=== PATIENT | female | born 1980 | race African-American/Black ===

== ENCOUNTER 2016-11-26 20:17 | Emergency (ER) | payer OTHER ==
[~2016-11-26] VITALS: Ht 175.3 cm; Wt 78.0 kg
[~2016-11-26 20:17] MED LIST: NORC7.5T PO; PRENCAP10 PO; VITA400C28 PO
[2016-11-26 20:29] VITALS: BP 122/76; PULSE 88; RESP 20; TEMP 98
[2016-11-26] MEDS ORDERED: TRIA.1%T TOPICAL (20:36)
--- NOTE | 2016-11-26 20:41 | PD ---
HPI Chief Complaint: Bite or Sting Time Seen by Provider: 20:36 Travel History International Travel<30 days: No Contact w/Intl Traveler<30days: No Traveled to known affect area: No History of Present Illness HPI 36-year-old black female presents emergency department for evaluation of a insect bite to her right inner thigh. She states that she was at [facility] yesterday when she was bitten by something. She does not recall seeing in the insect but felt the sting. She states the area became red, pruritic and swollen. She has been scratching the area. She has noted that the area has become quite large and warm. She denies any other systemic symptoms. No fever chills. No nausea vomiting PFSH Past Medical History Anemia: Yes Heart Rhythm Problems: Yes (SHE HAS AN IRREGULAR RYTHMN PER HISTORY, BUT DOES NOT KNOW WHAT.) Tetanus Vaccination: < 5 Years : 3 Para: 2 Past Surgical History Section: Yes (X2) Gynecologic Surgery: Yes ( X 2) Social History Alcohol Use: Yes (2 DRINKS PER MONTH) Tobacco Use: No Substance Use: No Allergies-Medications (Allergen,Severity, Reaction): Coded Allergies: No Known Allergies (Verified , 11/26/16) Reported Meds & Prescriptions Reported Meds & Active Scripts Active Reported Raymond 7.5/325 (Hydrocodone-Acetaminophen) 7.5 Mg/325 Mg Tab 1 Tab PO Q4H PRN Vitamin D 400 Unit Tab 400 Unit PO DAILY Multi +Dha (Ferrous Fumarate/Vit C/Folic Acid) + Cap 1 Cap PO DAILY Review of Systems Except as stated in HPI: all other systems reviewed are Neg Physical Exam Narrative GENERAL: Well-developed, well-nourished in no acute distress. Nontoxic appearing. HEAD: Normocephalic, atraumatic. EYES: Pupils equal round and reactive. Extraocular motions intact. No scleral icterus. No injection or drainage. ENT: TMs clear without erythema. The external auditory canals clear. Nose: clear . Posterior pharynx is pink and moist. No tonsillar edema or exudate. Uvula midline. Airway patent. NECK: Trachea midline.Supple, nontender, moves head freely. No central bony tenderness or spasm. CARDIOVASCULAR: Regular rate and rhythm without murmurs, gallops, or rubs. RESPIRATORY: Clear to auscultation. Breath sounds equal bilaterally. No wheezes , rales, or rhonchi. GASTROINTESTINAL: Abdomen soft, non-tender, nondistended. No hepato-splenomegaly , or palpable masses. No guarding. EXTREMITIES: No clubbing, cyanosis, or edema. No joint tenderness, effusion, or edema noted. BACK: Nontender without deformity or crepitance. No flank tenderness. Skin: The patient has a 10 x 10 area of erythema, thickening and warmth to the medial aspect of the distal right thigh. No tenderness. No fluctuance or pointing. Data Data Last Documented VS Vital Signs Date Time Temp Pulse Resp B/P Pulse Ox O2 Delivery O2 Flow Rate FiO2 11/26/16 20:29 98.0 88 20 122/76 Orders Diphenhydramine (Benadryl) (11/26/16 20:45) Dexamethasone (Decadron) (11/26/16 20:45) MDM Medical Decision Making Medical Screen Exam Complete: Yes Emergency Medical Condition: Yes Medical Record Reviewed: Yes Differential Diagnosis MDM: High Differential diagnoses: Insect bite with local reaction, folliculitis, cellulitis, lymphangitis, abrasion, contact dermatitis Narrative Course Patient given Decadron 12 mg by mouth and 50 mg of Benadryl by mouth. This is insect bite with local reaction Diagnosis Primary Impression: iNSECT BITE WITH LOCAL REACTION Patient Instructions: General Instructions Departure Forms: Tests/Procedures, Work Release Special Instructions: No work 1-2 days. Additional Instructions: Rest. Elevation. Ice packs for the next few days. 50 g of Benadryl every 4 hours. Triamcinolone cream 3 times daily. Follow-up with a medical doctor in one week. Return to the ER for any problems. Med/Other Pt SpecificInfo: Prescription(s) given Scripts Triamcinolone Topical 0.1% Cream1 Applic TOPICAL TID #30 GM Prov:Patsy Treviño MD 11/26/16 Disposition: 01 DISCHARGE HOME Condition: Stable Brent Gaona Nov 26, 2016 20:41
[2016-11-26] MEDS ORDERED: diphenhydrAMINE HCL 50 MG CAP PO ONE (20:45)
[2016-11-26] MEDS ORDERED: DEXAMETHASONE 6 MG TAB PO ONE (20:45)
== END 2016-11-26 21:30 | disposition home or self-care (01) ==
LOC: NEPK 20:17
DX: S70.361A Insect bite (nonvenomous), right thigh, initial encounter (principal); D64.9 Anemia, unspecified; Z79.899 Other long term (current) drug therapy; W57.XXXA Bitten or stung by nonvenomous insect and other nonvenomous arthropods, initial encounter
CPT/HCPCS: 99283; J8540; Q0163

== ENCOUNTER 2017-01-13 11:08 | Emergency (ER) | payer OTHER ==
[~2017-01-13] VITALS: Ht 175.3 cm; Wt 88.5 kg
[~2017-01-13 11:08] MED LIST changes: -NORC7.5T PO; -PRENCAP10 PO; +TRIA.1%T TOPICAL; -VITA400C28 PO
[2017-01-13 11:09] VITALS: BP 180/101; PULSE 72; RESP 16; TEMP 98.8; O2SAT 99
[2017-01-13 11:22] VITALS: BP 167/113
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
[2017-01-13] MEDS ORDERED: ROBA500T PO (11:48)
[2017-01-13] MEDS ORDERED: IBUP800T23 PO (11:48)
[2017-01-13 11:57] VITALS: BP 139/93
[2017-01-13] MEDS ORDERED: METHOCARBAMOL 500 MG TAB PO ONE (12:00)
[2017-01-13] MEDS ORDERED: IBUPROFEN 800 MG TAB PO ONE (12:00)
== END 2017-01-13 12:19 | disposition home or self-care (01) ==
LOC: NEPK 11:08
DX: S39.012A Strain of muscle, fascia and tendon of lower back, initial encounter (principal); S46.819A Strain of other muscles, fascia and tendons at shoulder and upper arm level, unspecified arm, initial encounter; V87.7XXA Person injured in collision between other specified motor vehicles (traffic), initial encounter
CPT/HCPCS: 99283